=== PATIENT | female | born 1950 | race Caucasian/White ===

== ENCOUNTER → 2017-08-23 | Outpatient (CLI) | payer OTHER ==
[~2017-08-23] MED LIST: ACYCLOVIR 400400 M1 PO; ACYCLOVIR 400400 MG PO; ALENDRONATE SOD70 MG PO; BUPROPION; MOBIC7.5 MG PO; RALOXIFENE HCL60 MG PO; TERBINAFINE HC250 MG PO
== END ==
LOC: RAD 15:01
DX: Z12.31 Encounter for screening mammogram for malignant neoplasm of breast (principal)

== ENCOUNTER → 2017-08-28 | Outpatient (CLI) | payer OTHER | LOC: NUC 14:19 | DX: M81.0 Age-related osteoporosis without current pathological fracture (principal); R31.9 Hematuria, unspecified; E28.39 Other primary ovarian failure ==

== ENCOUNTER 2018-06-15 20:47 | Emergency (ER) | payer OTHER ==
[~2018-06-15] VITALS: Ht 172.7 cm; Wt 68.5 kg
[2018-06-15] MEDS ORDERED: ANTIVERT25 MG PO (21:54)
[2018-06-15 21:59] VITALS: BP 127/66
== END 2018-06-15 22:03 | disposition home or self-care (01) ==
LOC: ER 20:47
DX: S06.0X0A Concussion without loss of consciousness, initial encounter (principal); W22.09XA Striking against other stationary object, initial encounter; Y93.89 Activity, other specified; Y92.89 Other specified places as the place of occurrence of the external cause; Y99.8 Other external cause status

== ENCOUNTER 2018-07-15 17:41 | Emergency (ER) | payer OTHER ==
[~2018-07-15] VITALS: Ht 170.2 cm; Wt 69.0 kg
[~2018-07-15 17:41] MED LIST changes: +ANTIVERT25 MG PO
[2018-07-15] MEDS ORDERED: MEDROLDOSEPACK PO (18:04)
[2018-07-15] MEDS ORDERED: HYDROXYZINE HCL25 M1 PO (18:04)
[2018-07-15] MEDS ORDERED: PRILOSEC 10MG C10 MG PO (18:14)
[2018-07-15 18:19] VITALS: BP 148/62
== END 2018-07-15 18:19 | disposition home or self-care (01) ==
LOC: ER 17:41
DX: L23.7 Allergic contact dermatitis due to plants, except food (principal)

== ENCOUNTER → 2018-08-10 | Outpatient (CLI) | payer OTHER ==
[~2018-08-10] MED LIST changes: +HYDROXYZINE HCL25 M1 PO; +MEDROLDOSEPACK PO; +PRILOSEC 10MG C10 MG PO
== END ==
LOC: ULTRA 15:41
DX: M25.462 Effusion, left knee (principal); M25.461 Effusion, right knee

== ENCOUNTER → 2019-05-02 | Outpatient (CLI) | payer OTHER | LOC: NUC 08:35 | DX: M85.88 Other specified disorders of bone density and structure, other site (principal); Z78.0 Asymptomatic menopausal state ==

== ENCOUNTER → 2020-01-08 | Outpatient (CLI) | payer OTHER | LOC: LAB 10:58 | PROVIDERS: ATTEND Nurse Practitioner | DX: U07.1 COVID-19 (principal) ==

== ENCOUNTER → 2021-01-27 | Outpatient (CLI) | payer OTHER | LOC: RAD 15:24 | PROVIDERS: ATTEND Nurse Practitioner | DX: M25.551 Pain in right hip (principal); M54.50 Low back pain, unspecified ==